=== PATIENT | male | born 1995 | race Caucasian/White ===

== ENCOUNTER 2022-12-03 23:00 | Emergency (ER) | payer OTHER ==
[~2022-12-03] VITALS: Ht 167.6 cm; Wt 79.5 kg
[2022-12-03 23:03] VITALS: TEMP 98.1
[2022-12-04] MEDS ORDERED: PREDNISONE20 MG PO (00:05)
[2022-12-04] MEDS ORDERED: PROAIR HFA0.09 MG/AC IH (00:06)
[2022-12-04 00:30] VITALS: BP 126/76; PULSE 86
== END 2022-12-04 00:31 | disposition home or self-care (01) ==
LOC: COL.ER 23:00
DX: J45.901 Unspecified asthma with (acute) exacerbation (principal); Z79.51 Long term (current) use of inhaled steroids; Z28.311 Partially vaccinated for COVID-19
CPT/HCPCS: J7512